=== PATIENT | female | born 1995 | race Two or more races ===

== ENCOUNTER → 2024-10-16 | Outpatient (REF) | payer OTHER | LOC: M PLALAB 09:52 | PROVIDERS: ATTEND Nurse Practitioner Family | DX: Z34.81 Encounter for supervision of other normal pregnancy, first trimester (principal) ==

== ENCOUNTER → 2024-10-16 | Outpatient (CLI) | payer OTHER ==
[2024-10-16 13:27] LABS: HEMATOCRIT 38.4 % (36.0-47.0); HEMOGLOBIN 12.7 g/dl (12.0-15.5); MEAN CORPUSCULAR HEMOGLOBIN 30.5 pg (27.0-33.0); MEAN CORPUSCULAR HGB CONC 33.1 g/dl (32.0-36.5); MEAN CORPUSCULAR VOLUME 92.3 fl (80.0-96.0); PLATELET COUNT, AUTOMATED 269 10^3/uL (150-450); RED BLOOD COUNT 4.16 10^6/uL (4.00-5.40); WHITE BLOOD COUNT 8.6 10^3/uL (4.0-10.0)
[2024-10-16 14:08] LABS: HIV 1&2 SCREEN NEGATIVE (NEGATIVE)
[2024-10-16 14:15] LABS: HEPATITIS C VIRUS ABY INDEX < 0.02 INDEX (<0.8)
[2024-10-16 14:26] LABS: GC DNA AMPLIFICATION NEGATIVE (NEGATIVE)
== END ==
LOC: M PLALAB 10:05
PROVIDERS: ATTEND Nurse Practitioner Family
DX: Z34.81 Encounter for supervision of other normal pregnancy, first trimester (principal)

== ENCOUNTER → 2024-11-13 | Outpatient (REF) | payer OTHER | LOC: M SFHCWAGY 12:47 | PROVIDERS: ATTEND Obstetrics & Gynecology | DX: R30.0 Dysuria (principal) ==

== ENCOUNTER → 2024-12-18 | Outpatient (CLI) | payer OTHER | LOC: M WHC 11:27 | PROVIDERS: ATTEND Obstetrics & Gynecology | DX: Z36.89 Encounter for other specified antenatal screening (principal) ==

== ENCOUNTER → 2025-02-06 | Outpatient (CLI) | payer OTHER ==
[2025-02-06 14:21] LABS: HEMATOCRIT 34.3 % (36.0-47.0); HEMOGLOBIN 11.3 g/dl (12.0-15.5); MEAN CORPUSCULAR HGB CONC 32.9 g/dl (32.0-36.5); MEAN CORPUSCULAR VOLUME 94.2 fl (80.0-96.0); PLATELET COUNT, AUTOMATED 192 10^3/uL (150-450); RED BLOOD COUNT 3.64 10^6/uL (4.00-5.40); WHITE BLOOD COUNT 8.5 10^3/uL (4.0-10.0)
[2025-02-06 14:51] LABS: GLUCOSE CHALLENGE TEST 1 HOUR 145 MG/DL (LESS THAN 140)
[2025-02-06 15:18] LABS: HIV 1&2 SCREEN NEGATIVE (NEGATIVE)
[2025-02-06 15:21] LABS: Trichomonas vaginalis (AMP) NOT DETECTED (NEGATIVE)
[2025-02-06 15:25] LABS: HEPATITIS C VIRUS ABY INDEX 0.04 INDEX (<0.8)
[2025-02-06 15:45] LABS: GC DNA AMPLIFICATION NEGATIVE (NEGATIVE)
== END ==
LOC: M PLALAB 09:41
PROVIDERS: ATTEND Nurse Practitioner Family
DX: Z34.82 Encounter for supervision of other normal pregnancy, second trimester (principal)

== ENCOUNTER → 2025-02-11 | Outpatient (CLI) | payer OTHER | LOC: M LAB 07:38 | PROVIDERS: ATTEND Nurse Practitioner Family | DX: R73.02 Impaired glucose tolerance (oral) (principal) ==

== ENCOUNTER → 2025-04-15 | Outpatient (REF) | payer OTHER | LOC: M PLALAB 13:59 | PROVIDERS: ATTEND Nurse Practitioner Family | DX: Z34.03 Encounter for supervision of normal first pregnancy, third trimester (principal); Z3A.36 36 weeks gestation of pregnancy ==